=== PATIENT | male | born 1950 | race Native Hawaiian/Other Pacific Islander ===

== ENCOUNTER 2017-07-20 15:56 | Outpatient (CLI) | payer BC | END 2017-07-20 19:23 | disposition home or self-care (01) | LOC: RAD 15:56 | DX: J01.00 Acute maxillary sinusitis, unspecified (principal); J40 Bronchitis, not specified as acute or chronic ==

== ENCOUNTER 2018-01-16 08:49 | Emergency (ER) | payer BC ==
[~2018-01-16] VITALS: Ht 175.3 cm; Wt 80.5 kg
[2018-01-16 10:29] VITALS: BP 112/62; TEMP 97.9
== END 2018-01-16 10:30 | disposition home or self-care (01) ==
LOC: ED 08:49
PROC: 2W3JX1Z Immobilization of Right Finger using Splint (ICD-10-PCS; principal; 2018-01-16)
DX: S56.113A Strain of flexor muscle, fascia and tendon of right middle finger at forearm level, initial encounter (principal); X58.XXXA Exposure to other specified factors, initial encounter
CPT/HCPCS: 99282

== ENCOUNTER 2020-10-23 13:45 | Emergency (ER) | payer OTHER ==
[~2020-10-23] VITALS: Ht 175.3 cm; Wt 80.3 kg
[2020-10-23 13:54] VITALS: BP 154/77; TEMP 99.1
[2020-10-23 14:23] LABS: PLATELET COUNT 294 K/uL (142-355)
[2020-10-23 14:37] LABS: SODIUM 141 mmol/L (136-145)
[2020-10-23 14:45] LABS: PARTIAL THROMBOPLASTIN TIME 22.4 SECONDS (24.5-33.6)
== END 2020-10-23 15:06 | disposition home or self-care (01) ==
LOC: ED 13:45
PROVIDERS: Family Medicine
DX: I20.8 Other forms of angina pectoris (principal)
CPT/HCPCS: 80053; 82550; 84484; 85027; 85610; 85730; 93005; 99283

== ENCOUNTER 2022-04-24 09:39 | Outpatient (CLI) | payer OTHER | END 2022-04-24 18:57 | disposition home or self-care (01) | LOC: US 09:39 | PROVIDERS: ATTEND Internal Medicine | DX: R14.0 Abdominal distension (gaseous) (principal) ==

== ENCOUNTER 2022-06-06 12:49 | Outpatient (CLI) | payer OTHER | END 2022-06-06 23:38 | disposition home or self-care (01) | LOC: NM 12:49 | PROVIDERS: ATTEND Internal Medicine | DX: R10.11 Right upper quadrant pain (principal) | CPT/HCPCS: A9537 ==